=== PATIENT | female | born 1935 | race Caucasian/White ===

== ENCOUNTER 2017-06-04 10:32 | Inpatient (IN) | payer OTHER ==
[~2017-06-04] VITALS: Ht 157.5 cm; Wt 74.4 kg
--- NOTE | 2017-06-04 10:50 | NUR ---
PATIENT ARRIVED TO ER C/O 04/23 ABDOMINAL PAIN. STATING IT STARTED THIS AM AROUND 0300. PATIENT STATES SHE DID HAVE A BOWEL MOVEMENT THIS AM. PATIENT IS A/OX 4. BREATHING EVEN AND UNLABORED ON ROOM AIR. NO SOB. VITALS STABLE. SAFETY AND COMFORT MEASURES IN PLACE. AWAITING MD ORDERS.
[2017-06-04 11:02] LABS: BASOPHILS % (AUTO) 0.3 % (0.0-2.0); EOSINOPHILS % (AUTO) 0.1 % (0.0-6.0); HEMATOCRIT 39 % (33-45); HEMOGLOBIN 13.2 g/dL (11.5-14.8); LYMPHOCYTES # (AUTO) 0.5 /CMM (0.8-4.8); LYMPHOCYTES % (AUTO) 7.4 % (20.0-44.0); MEAN CORPUSCULAR HEMOGLOBIN 30 PG (26.0-33.0); MEAN CORPUSCULAR HGB CONC 34 g/dl (31.0-36.0); MEAN CORPUSCULAR VOLUME 90 fL (82-100); MONOCYTES # (AUTO) 0.3 /CMM (0.1-1.30); MONOCYTES % (AUTO) 3.9 % (2.0-12.0); NEUTROPHILS # (AUTO) 6.5 /CMM (1.8-8.9); NEUTROPHILS % (AUTO) 88.3 % (43.0-81.0); PLATELET COUNT (AUTO) 228 /CMM (150-450); RDW COEFFICIENT OF VARIATION 12.5 (11.5-15.0); RED BLOOD CELL COUNT(AUTO) 4.34 MIL/uL (4.0-5.2); WHITE BLOOD COUNT (AUTO) 7.3 K/uL (4.3-11.0)
[2017-06-04 11:09] LABS: CALCIUM, SERUM 8.8 mg/dL (8.5-10.1); CARBON DIOXIDE 27 mmol/L (21-32); CHLORIDE 103 mmol/L (98-107); CREATININE 0.9 mg/dL (0.6-1.3); GLUCOSE 250 mg/dL (74-106); POTASSIUM 3.9 mmol/L (3.5-5.1); SODIUM SERUM 138 mmol/L (136-145); UREA NITROGEN, BLOOD 14 mg/dL (7-18)
[2017-06-04 11:16] LABS: ALANINE AMINOTRANSFERASE 374 U/L (12-78); ALBUMIN 3.9 g/dL (3.4-5.0); ALKALINE PHOSPHATASE 142 U/L (46-116); ASPARTATE AMINOTRANSFERASE 657 U/L (15-37); BILIRUBIN,DIRECT 1.4 mg/dL (0.0-0.2); BILIRUBIN,TOTAL 2.1 mg/dL (0.2-1.0); TOTAL PROTEIN, SERUM 6.7 g/dL (6.4-8.2)
--- NOTE | 2017-06-04 11:28 | NUR ---
PER DR. VALLE, OKAY TO CANCEL URINALYSIS.
[2017-06-04 12:27] LABS: LIPASE 42281 U/L (73-393)
--- NOTE | 2017-06-04 12:40 | NUR ---
US TECH AT BEDSIDE.
--- NOTE | 2017-06-04 13:50 | NUR ---
MS RN NOTES PATIENT ARRIVED TO UNIT IN WHEELCHAIR. NO S/S OF SOB OR DISTRESS NOTED. VITAL SIGNS STABLE. PATIENT STATES HER PAIN IS BETTER. ORIENTED PATIENT TO THE UNIT AND TO THE ROOM. EXPLAINED CALL LIGHT TO PATIENT. PLACED CALL LIGHT IN REACH. BED IS IN THE LOWEST, LOCKED POSITION. SAFETY MEASURES IMPLEMENTED. FAMILY MEMBER AT BEDSIDE. IV IN LEFT AC IS PATENT AND INTACT. WILL CONTINUE TO MONITOR Addendum: 06/04/17 at 1810 by MARYANA SPEARS RN TIME : 1550 NOT 1350
[2017-06-04] MEDS ORDERED: IV NS 0.9% 500 ML BAG IV ONE (15:00)
--- NOTE | 2017-06-04 15:06 | NUR ---
PATIENT TAKEN TO CT VIA STRETCHER.
--- NOTE | 2017-06-04 15:10 | NUR ---
M/S 312-1
[2017-06-04] MEDS ORDERED: CT SWABBABLE VALVE TRANS SET 1 EA INFUS.SET MC ONE (15:12)
[2017-06-04] MEDS ORDERED: IV NS 0.9% 250 ML IV ONE (15:12)
[2017-06-04] MEDS ORDERED: IOHEXOL-300 100 ML VIAL IV ONE (15:12)
--- NOTE | 2017-06-04 15:17 | NUR ---
REPORT GIVEN TO MARYANA FINNEY FOR MARLYN.
--- NOTE | 2017-06-04 15:40 | NUR ---
PATIENT TRANSPORTED TO [facility] VIA WHEELCHAIR FOR ADMISSION. MARYANA FINNEY TO PROVIDE MARLYN.
[2017-06-04 17:04] VITALS: BP 146/80
[2017-06-04] MEDS ORDERED: MAGN250T PO (17:39)
[2017-06-04] MEDS ORDERED: LEVO50TA8 PO (17:39)
[2017-06-04] MEDS ORDERED: CHOL200026 PO (17:39)
[2017-06-04] MEDS ORDERED: CYAN10009 PO (17:39)
[2017-06-04] MEDS ORDERED: APIX5TAB PO (17:39)
[2017-06-04] MEDS ORDERED: TRAZ-144 PO (17:39)
[2017-06-04] MEDS ORDERED: CRAN400T4 PO (17:39)
[2017-06-04] MEDS ORDERED: ASCO10007 PO (17:39)
[2017-06-04] MEDS ORDERED: ATEN25TA PO (17:39)
[2017-06-04] MEDS ORDERED: PRAV20TA4 PO (17:39)
[2017-06-04] MEDS ORDERED: METF500T7 PO (17:39)
[2017-06-04] MEDS ORDERED: DOCU-170 PO (17:39)
[2017-06-04] MEDS ORDERED: NORT10CA PO (17:39)
[2017-06-04] MEDS ORDERED: BIOT5CAP2 PO (17:39)
[2017-06-04] MEDS ORDERED: ONDANSETRON HCL/PF 4 MG/2 ML VIAL IVP PRN (18:00)
[2017-06-04] MEDS ORDERED: DEXTROSE 50%-WATER 50 ML DISP.SYRIN IV PRN (18:00)
[2017-06-04] MEDS ORDERED: Z GUARD REMEDY 2 OZ OINT TP PRN (18:00)
[2017-06-04] MEDS ORDERED: ACETAMINOPHEN 325 MG TABLET PO PRN (18:00)
[2017-06-04] MEDS ORDERED: INSULIN REGULAR, HUMAN 100 UNIT/ML 3 ML VIAL SQ PRN (18:00)
[2017-06-04] MEDS ORDERED: MORPHINE SULFATE INJ 2 MG/ML DISP.SYRIN IV PRN (18:00)
[2017-06-04] MEDS: NORTRIPTYLINE HCL 10 MG CAPSULE PO SCH (18:25)
[2017-06-04] MEDS: IV NS 0.9% 1,000 ML IV PRN (18:26)
--- NOTE | 2017-06-04 19:25 | NUR ---
MS/RN NOTES RECEIVED PT. LYING IN BED. AWAKE, ALERT AND ORIENTED X4. BREATHING EVEN AND UNLABORED ON ROOM AIR. NO SOB, RESPIRATORY DISTRESS OR COMPLAINTS OF PAIN NOTED AT THIS TIME. PT. WITH LEFT AC PERIPHERAL IV PRESENT, PATENT AND INTACT ADMINISTERING TO PT. NS @ 100 ML/HR. BED IN LOWEST POSITION, CALL LIGHT WITHIN REACH, WILL CONTINUE TO MONITOR.
[2017-06-04] MEDS: ELIQUIS 5 MG PO SCH (19:28)
[2017-06-04 20:20] VITALS: BP 143/82
[2017-06-04] MEDS ORDERED: ZOLPIDEM TARTRATE 5 MG TABLET PO PRN (22:00)
[2017-06-04] MEDS: BLOOD SUGAR DIAGNOSTIC 1 EACH STRIP IN SCH (22:25)
[2017-06-04] MEDS: TRAZODONE 50 MG TABLET PO SCH (22:26)
--- NOTE | 2017-06-05 06:06 | NUR ---
MS/RN NOTES PT. LYING IN BED RESTING. BREATHING EVEN AND UNLABORED ON ROOM AIR. NO SOB, RESPIRATORY DISTRESS OR COMPLAINTS OF PAIN NOTED AT THIS TIME. PT. WITH LEFT AC PERIPHERAL IV PRESENT, PATENT AND INTACT ADMINISTERING TO PT. NS @ 100 ML/HR. ALL PT. NEEDS MET. BED IN LOWEST POSITION, CALL LIGHT WITHIN REACH, WILL ENDORSE TO DAYSHIFT NURSE FOR CONTINUITY OF CARE.
[2017-06-05 06:26] LABS: BASOPHILS % (AUTO) 0.3 % (0.0-2.0); HEMATOCRIT 35 % (33-45); HEMOGLOBIN 11.9 g/dL (11.5-14.8); LYMPHOCYTES # (AUTO) 0.9 /CMM (0.8-4.8); LYMPHOCYTES % (AUTO) 18.4 % (20.0-44.0); MEAN CORPUSCULAR HEMOGLOBIN 31 PG (26.0-33.0); MEAN CORPUSCULAR HGB CONC 34 g/dl (31.0-36.0); MEAN CORPUSCULAR VOLUME 91 fL (82-100); MONOCYTES # (AUTO) 0.4 /CMM (0.1-1.30); MONOCYTES % (AUTO) 8.2 % (2.0-12.0); NEUTROPHILS # (AUTO) 3.4 /CMM (1.8-8.9); NEUTROPHILS % (AUTO) 73.1 % (43.0-81.0); PLATELET COUNT (AUTO) 182 /CMM (150-450); RDW COEFFICIENT OF VARIATION 13.8 (11.5-15.0); RED BLOOD CELL COUNT(AUTO) 3.86 MIL/uL (4.0-5.2); WHITE BLOOD COUNT (AUTO) 4.7 K/uL (4.3-11.0)
[2017-06-05 06:43] LABS: ALANINE AMINOTRANSFERASE 267 U/L (12-78); ALBUMIN 3.2 g/dL (3.4-5.0); ALKALINE PHOSPHATASE 120 U/L (46-116); ASPARTATE AMINOTRANSFERASE 195 U/L (15-37); BILIRUBIN,TOTAL 0.6 mg/dL (0.2-1.0); CARBON DIOXIDE 27 mmol/L (21-32); CHLORIDE 104 mmol/L (98-107); CREATININE 0.7 mg/dL (0.6-1.3); GLUCOSE 107 mg/dL (74-106); MAGNESIUM 1.8 mg/dL (1.8-2.4); PHOSPHORUS 3.8 mg/dL (2.5-4.9); SODIUM SERUM 134 mmol/L (136-145); TOTAL PROTEIN, SERUM 5.7 g/dL (6.4-8.2); UREA NITROGEN, BLOOD 8 mg/dL (7-18)
[2017-06-05 06:46] LABS: CHOLESTEROL 107 mg/dL (<200); HDL CHOLESTEROL 39 mg/dL (40-60); LDL 51 mg/dL (0-99); THYROID STIMULATING HORMONE 1.525 uIU/mL (0.358-3.74); TRIGLYCERIDES 68 mg/dL (30-150)
[2017-06-05] MEDS: BLOOD SUGAR DIAGNOSTIC 1 EACH STRIP IN SCH ×4 (06:51→21:08)
[2017-06-05] MEDS: IV NS 0.9% 1,000 ML IV PRN (06:52)
--- NOTE | 2017-06-05 07:16 | NUR ---
MS/RN OPENING NOTES PT RECEIVED ASLEEP IN BED, EASILY AWAKENS. ALERT AND ORIENTED X4, NO C/O PAIN OR DISCOMFORTS AT THIS TIME. ON ROOM AIR, BREATHING EVEN AND UNLABORED. IV ACCESS ON LEFT AC PATENT AND INTACT WITH IVF OF NS @ 100 ML/HR INFUSING, NO S/S OF INFILTRATION NOTED. BED IN LOWEST POSITION AND LOCKED. CALL LIGHT WITHIN REACH OF PT. WILL MAINTAIN ALL SAFETY MEASURES AND WILL CONTINUE TO MONITOR PT ACCORDINGLY.
[2017-06-05 08:00] VITALS: BP 138/71
[2017-06-05] MEDS: ELIQUIS 5 MG PO SCH ×2 (08:15→17:26)
[2017-06-05] MEDS: PANTOPRAZOLE 40 MG TABLET.DR PO SCH (08:17)
[2017-06-05] MEDS: DOCUSATE SODIUM 100 MG CAPSULE PO SCH (08:17)
[2017-06-05] MEDS: LEVOTHYROXINE SODIUM 50 MCG TABLET PO SCH (08:17)
[2017-06-05] MEDS: ATENOLOL 25 MG TABLET PO SCH ×2 (08:18→17:24)
[2017-06-05] MEDS: ATORVASTATIN 10 MG TABLET PO SCH (08:20)
--- NOTE | 2017-06-05 08:23 | NUR ---
RN NOTES PATIENT C/O MILD HEADACHE, REQUESTED TYLENOL 650MG AND GIVEN. WILL CONTINUE TO MONITOR
[2017-06-05] MEDS: POTASSIUM CHLORIDE 20 MEQ TAB.PRT.SR PO SCH ×3 (11:49→13:41)
[2017-06-05 16:00] VITALS: BP 126/69
[2017-06-05] MEDS: NORTRIPTYLINE HCL 10 MG CAPSULE PO SCH (17:24)
--- NOTE | 2017-06-05 18:17 | NUR ---
RN NOTES PATIENT WITH LOW K LEVEL OF 3.0, MD AWARE AND ORDERED K-DUR 20MEQ TAB X 3DOSES. WILL CONTINUE TO MONITOR
--- NOTE | 2017-06-05 18:57 | NUR ---
MS/RN CLOSING NOTES PATIENT RESTING IN BED. ALERT AND ORIENTED X4, VERBALLY RESPONSIVE. NO SIGNIFICANT CHANGES NOTED THROUGHOUT THE DAY. ON ROOM AIR, BREATHING EVEN AND UNLABORED. IV ACCESS ON RIGHT FA PATENT AND INTACT, SL LOCK ONLY. BED IN LOWEST POSITION AND LOCKED. CALL LIGHT WITHIN REACH OF PT. ALL SAFETY MEASURES MAINTAINED. ALL NEEDS ATTENDED WELL. WILL ENDORSED TO FINISHED GARMENT INSPECTOR FOR MARLYN. .
--- NOTE | 2017-06-05 19:30 | NUR ---
RN NOTES RECEIVED PATIENT IN BED AWAKE, AO X 3, ABLE TO MAKE NEEDS KNOWN. NO ACUTE DISTRESS NOTED. DENIES ANY PAIN AT THIS TIME. NO SYMPTOMS OF HYPER/HYPOGLYCEMIA. IV SITE PATENT, INTACT; FLUSHED. ON LOW BED WITH BILATERAL UPPER SIDE RAILS UP. CALL LIGHT WITHIN EASY REACH. WILL CONTINUE TO MONITOR.
[2017-06-05 20:00] VITALS: BP 129/75
[2017-06-05 20:09] VITALS: BP 129/75
[2017-06-05] MEDS: TRAZODONE 50 MG TABLET PO SCH (22:55)
--- NOTE | 2017-06-06 06:19 | NUR ---
RN NOTES PATIENT ASLEEP, AROUSES EASILY, RESPIRATIONS EVEN. NO SIGNS OF PAIN NOTED AT THIS TIME. DUE MEDS GIVEN WITH NO ASE NOTED. NEEDS ATTENDED. SAFETY PRECAUTIONS AND COMFORT MEASURES IN PLACE. WILL GIVE REPORT TO DAY SHIFT FOR CONTINUITY OF CARE.
[2017-06-06] MEDS: BLOOD SUGAR DIAGNOSTIC 1 EACH STRIP IN SCH ×2 (06:32→11:38)
[2017-06-06 06:44] LABS: BASOPHILS % (AUTO) 0.9 % (0.0-2.0); EOSINOPHILS % (AUTO) 0.5 % (0.0-6.0); HEMATOCRIT 34 % (33-45); HEMOGLOBIN 11.8 g/dL (11.5-14.8); LYMPHOCYTES % (AUTO) 23.5 % (20.0-44.0); MEAN CORPUSCULAR HEMOGLOBIN 31 PG (26.0-33.0); MEAN CORPUSCULAR HGB CONC 35 g/dl (31.0-36.0); MEAN CORPUSCULAR VOLUME 90 fL (82-100); MONOCYTES # (AUTO) 0.4 /CMM (0.1-1.30); MONOCYTES % (AUTO) 9.4 % (2.0-12.0); NEUTROPHILS # (AUTO) 2.7 /CMM (1.8-8.9); NEUTROPHILS % (AUTO) 65.7 % (43.0-81.0); PLATELET COUNT (AUTO) 174 /CMM (150-450); RDW COEFFICIENT OF VARIATION 13.5 (11.5-15.0); RED BLOOD CELL COUNT(AUTO) 3.78 MIL/uL (4.0-5.2); WHITE BLOOD COUNT (AUTO) 4.1 K/uL (4.3-11.0)
[2017-06-06 07:13] LABS: ALANINE AMINOTRANSFERASE 168 U/L (12-78); ALBUMIN 3.1 g/dL (3.4-5.0); ALKALINE PHOSPHATASE 101 U/L (46-116); ASPARTATE AMINOTRANSFERASE 67 U/L (15-37); BILIRUBIN,TOTAL 0.6 mg/dL (0.2-1.0); CALCIUM, SERUM 8.1 mg/dL (8.5-10.1); CARBON DIOXIDE 28 mmol/L (21-32); CHLORIDE 108 mmol/L (98-107); CREATININE 0.9 mg/dL (0.6-1.3); GLUCOSE 130 mg/dL (74-106); LIPASE 499 U/L (73-393); MAGNESIUM 1.9 mg/dL (1.8-2.4); PHOSPHORUS 3.4 mg/dL (2.5-4.9); SODIUM SERUM 142 mmol/L (136-145); TOTAL PROTEIN, SERUM 5.8 g/dL (6.4-8.2); UREA NITROGEN, BLOOD 10 mg/dL (7-18)
--- NOTE | 2017-06-06 07:23 | NUR ---
MS/RN OPENING NOTES RECEIVED PATIENT IN BED AWAKE AND IN NO ACUTE SIGNS OF DISTRESS. ALERT AND ORIENTED X4, NO C/O PAIN OR DISCOMFORTS AT THIS TIME. ON ROOM AIR, BREATHING EVEN AND UNLABORED. IV ACCESS ON RIGHT FA #18 PATENT AND INTACT. BED IN LOWEST POSITION AND LOCKED. CALL LIGHT WITHIN REACH OF PT. WILL MAINTAIN ALL SAFETY MEASURES AND WILL CONTINUE TO MONITOR PT ACCORDINGLY.
[2017-06-06 08:00] VITALS: BP 132/69
[2017-06-06] MEDS: LEVOTHYROXINE SODIUM 50 MCG TABLET PO SCH (08:21)
[2017-06-06] MEDS: DOCUSATE SODIUM 100 MG CAPSULE PO SCH (08:21)
[2017-06-06] MEDS: ATORVASTATIN 10 MG TABLET PO SCH (08:21)
[2017-06-06] MEDS: PANTOPRAZOLE 40 MG TABLET.DR PO SCH (08:21)
[2017-06-06 08:22] VITALS: BP 132/69
[2017-06-06] MEDS: ATENOLOL 25 MG TABLET PO SCH (08:22)
[2017-06-06] MEDS: ELIQUIS 5 MG PO SCH (08:25)
--- NOTE | 2017-06-06 11:38 | NUR ---
RN NOTES PATIENT WITH BLOOD SUGAR OF 141MG/DL BUT REFUSED INSULIN COVERAGE. WILL CONTINUE TO MONITOR.
[2017-06-06] MEDS ORDERED: PANT40TA4 PO (12:47)
--- NOTE | 2017-06-06 13:27 | NUR ---
RN DISCHARGED NOTES PATIENT DISCHARGED HOME IN STABLE CONDITION. LEFT UNIT AMBULATORY AT ACCOMPANIED BY NIECE AT 1320H. ALERT AND ORIENTED X4, NO C/O PAIN OR DISCOMFORTS DURING DISCHARGE. NO SOB NOTED. V/S CHECKED AND RECORDED. SKIN IS INTACT. NO IMMUNIZATION GIVEN, VERBALIZED THAT SHE GETS PNA AND FLU VACCINES EVERY YEAR. BELONGINGS CHECKED, COUNTED AND SIGNED FORM. HEALTH TEACHINGS GIVEN AND VERBALIZED UNDERSTANDING. MD AND CHARGE NURSE AWARE OF DISCHARGE.
== END 2017-06-06 13:25 | disposition home or self-care (01) | DRG 439 ==
LOC: ER 10:44 → MED 15:58
PROVIDERS: ADMIT Nurse Practitioner Acute Care; ATTEND Nurse Practitioner Acute Care
DX: K85.90 Acute pancreatitis without necrosis or infection, unspecified (principal); D68.59 Other primary thrombophilia; K29.80 Duodenitis without bleeding; K58.9 Irritable bowel syndrome, unspecified; E03.9 Hypothyroidism, unspecified; E11.9 Type 2 diabetes mellitus without complications; E66.9 Obesity, unspecified; E78.5 Hyperlipidemia, unspecified; G50.0 Trigeminal neuralgia; I10 Essential (primary) hypertension; I48.0 Paroxysmal atrial fibrillation; K21.9 Gastro-esophageal reflux disease without esophagitis; Z90.49 Acquired absence of other specified parts of digestive tract; Z90.710 Acquired absence of both cervix and uterus; E80.6 Other disorders of bilirubin metabolism; R74.0 Nonspecific elevation of levels of transaminase and lactic acid dehydrogenase [LDH]; Z68.30 Body mass index [BMI] 30.0-30.9, adult
CPT/HCPCS: 36415; 76705-TC; 80048-TC; 80053-TC; 80061-TC; 80076-TC; 82962-TC; 83690-TC; 83735-TC; 84100-TC; 84443-TC; 85025-TC; 86301; 87081-TC; A4606; A6402; J1815; J7030; J7040; J7050; Q9967; Z7610

== ENCOUNTER 2017-12-16 18:35 | Inpatient (IN) | payer OTHER ==
[~2017-12-16] VITALS: Ht 165.1 cm; Wt 80.3 kg
[~2017-12-16 18:35] MED LIST: APIX5TAB PO; ASCO10007 PO; ATEN25TA PO; BIOT5CAP2 PO; CHOL200026 PO; CRAN400T4 PO; CYAN10009 PO; DOCU100C36 PO; LEVO50TA8 PO; MAGN250T2 PO; METF500T7 PO; NORT10CA PO; PANT40TA4 PO; PRAV20TA4 PO; TRAZ-144 PO
--- NOTE | 2017-12-16 18:35 | NUR ---
PT RECEIVED FROM HOME BB SELF C/O "ABDOMINAL PAIN 08/23 X1 DAY NONRADIATING". NO SOB NOTED AT THIS TIME. VSS NAD WILL CONTINUE TO MONITOR FOR ANY CHANGES DURING THE SHIFT
--- NOTE | 2017-12-16 19:20 | NUR ---
BLOOD SENT TO LAB WITH SAP DIRECTOR
[2017-12-16] MEDS ORDERED: HYDROMORPHONE INJ 0.5 MG/0.5 ML SYRINGE ONE (19:35)
[2017-12-16] MEDS ORDERED: ONDANSETRON HCL/PF 4 MG/2 ML VIAL ONE (19:35)
--- NOTE | 2017-12-16 19:44 | NUR ---
CARDIOVASCULAR LAB DIRECTOR AT BEDSIDE
[2017-12-16 19:49] LABS: CALCIUM, SERUM 10.5 mg/dL (8.5-10.1); CARBON DIOXIDE 27 mmol/L (21-32); CHLORIDE 100 mmol/L (98-107); GLUCOSE 184 mg/dL (74-106); POTASSIUM 3.9 mmol/L (3.5-5.1); SODIUM SERUM 139 mmol/L (136-145); UREA NITROGEN, BLOOD 19 mg/dL (7-18)
[2017-12-16 19:54] LABS: ALANINE AMINOTRANSFERASE 73 U/L (12-78); ALBUMIN 4.2 g/dL (3.4-5.0); ALKALINE PHOSPHATASE 106 U/L (46-116); ASPARTATE AMINOTRANSFERASE 28 U/L (15-37); BILIRUBIN,DIRECT 0.1 mg/dL (0.0-0.2); BILIRUBIN,TOTAL 0.6 mg/dL (0.2-1.0); LIPASE 227 U/L (73-393); TOTAL PROTEIN, SERUM 7.9 g/dL (6.4-8.2)
[2017-12-16 19:59] LABS: INR 1.02 (0.85-1.15)
[2017-12-16] MEDS ORDERED: IV NS 0.9% 1,000 ML BAG IV ONE (20:00)
[2017-12-16] MEDS ORDERED: HYDROMORPHONE 1 MG/1 ML DISP.SYRIN IV ONE (20:00)
[2017-12-16] MEDS ORDERED: HYDROMORPHONE INJ 2 MG/ML DISP.SYRIN IV ONE (20:00)
[2017-12-16] MEDS ORDERED: ONDANSETRON HCL/PF 4 MG/2 ML VIAL IVP ONE (20:00)
--- NOTE | 2017-12-16 20:14 | NUR ---
CALLED NURSING SUP. FOR MS BED
--- NOTE | 2017-12-16 20:39 | NUR ---
ER MD MELENDEZ STATED THAT WE DO NOT NEED IN/OUT CATH FOR URINE. PT UNABLE TO GET UP AND URINE BYSELF
[2017-12-16 20:41] LABS: BASOPHILS % (AUTO) 0.2 % (0.0-2.0); HEMATOCRIT 42 % (33-45); HEMOGLOBIN 14.6 g/dL (11.5-14.8); LYMPHOCYTES # (AUTO) 1.3 /CMM (0.8-4.8); LYMPHOCYTES % (AUTO) 13.8 % (20.0-44.0); MEAN CORPUSCULAR HEMOGLOBIN 31 PG (26.0-33.0); MEAN CORPUSCULAR HGB CONC 34 g/dl (31.0-36.0); MEAN CORPUSCULAR VOLUME 89 fL (82-100); MONOCYTES # (AUTO) 0.5 /CMM (0.1-1.30); MONOCYTES % (AUTO) 5.4 % (2.0-12.0); NEUTROPHILS # (AUTO) 7.3 /CMM (1.8-8.9); NEUTROPHILS % (AUTO) 80.6 % (43.0-81.0); PLATELET COUNT (AUTO) 226 /CMM (150-450); RDW COEFFICIENT OF VARIATION 12.5 (11.5-15.0); RED BLOOD CELL COUNT(AUTO) 4.74 MIL/uL (4.0-5.2); WHITE BLOOD COUNT (AUTO) 9.1 K/uL (4.3-11.0)
--- NOTE | 2017-12-16 21:22 | NUR ---
PT STATED "I FEEL SO MUCH BETTER AFTER THAT PAIN MEDICATION. WORLD OF A DIFFERENCE. HOPEFULLY I CAN GO HOME". VISUALLY PATIENT IS NAD VSS
--- NOTE | 2017-12-16 21:28 | NUR ---
DIRECTOR [facility] AT BEDSIDE TO TAKE PT TO CT SCAN
--- NOTE | 2017-12-16 21:40 | NUR ---
PT BACK FROM CT SCAN
--- NOTE | 2017-12-16 22:35 | NUR ---
CALLED , ROOFER SURGEON, TRANSFERRED CALL TO
--- NOTE | 2017-12-16 22:38 | NUR ---
[facility] PAGED, DR. LO GOOD HUMOR VENDOR
--- NOTE | 2017-12-16 22:42 | NUR ---
MS 324-2
--- NOTE | 2017-12-16 22:49 | NUR ---
REPORT GIVEN TO DONALD
[2017-12-16 22:51] LABS: APPEARANCE,URINE CLOUDY (CLEAR); BILIRUBIN,URINE NEGATIVE (NEGATIVE); BLOOD, URINE TRACE-INTA Ery/uL (NEGATIVE); COLOR,URINE YELLOW (YELLOW); KETONES,URINE 2+ (NEGATIVE); LEUKOCYTE ESTERASE ,URINE NEGATIVE (NEGATIVE); NITRITE, URINE NEGATIVE (NEGATIVE); PROTEIN,URINE NEGATIVE (NEGATIVE); UGLUCOSE NEGATIVE (NEGATIVE); UROBILINOGEN,URINE 0.2 EU/dL (0.2)
--- NOTE | 2017-12-16 22:53 | NUR ---
MD GUTIERREZ AT BEDSIDE FOR EVAL
--- NOTE | 2017-12-16 23:00 | NUR ---
ADMIT MD HAS LEFT ROOM. PT TO BE BROUGHT UP NOW
[2017-12-16 23:05] VITALS: BP 159/84
--- NOTE | 2017-12-16 23:05 | NUR ---
MS RN ADMITTING NOTES: ADMITTED AN 82 YO FEMALE PATIENT WHO WAS BROUGHT TO ER BY NEIGHBOR DUE TO SEVERE, STABBING, NON RADIATING EPIGASTRIC PAIN. PATIENT WAS BROUGHT TO MS FLOOR VIA WC. PATIENT AOX4, ON ROOM AIR, BREATHING EVEN AND UNLABORED. APPEARS CALM AND IN NO DISTRESS AT THIS TIME, STATES THAT ABDL PAIN IS NOT AT 2/10, INTERMITTENT FREQ. DENIES NAUSEA OR VOMITING. ALSO DENIES DIARRHEA, LAST BM WAS AT HOME THIS AM, PER PATIENT, IT WAS SOFT TO FORMED. PIV OVER RAC G 18 INTACT AND PATENT TO FLUSH. ADMITTING CARE DONE. PROVIDED FOR COMFORT AND SAFETY. BED IN LOWEST AND LOCKED POSITION, SIDERAILS UP X 2. WILL CONT TO MONITOR.
[2017-12-16 23:18] LABS: BACTERIA,URINE 2+ /HPF (None Seen); SQUAMOUS EPITHELIAL CELL,UR Few /HPF (None Seen); URINE AMORPHOUS URATE Many /HPF (None Seen)
[2017-12-16] MEDS ORDERED: ZOLPIDEM TARTRATE 5 MG TABLET PO PRN (23:30)
[2017-12-16] MEDS ORDERED: MAGNESIUM HYDROXIDE 30 ML UDC PO PRN (23:30)
[2017-12-16] MEDS ORDERED: MORPHINE SULFATE INJ 2 MG/ML DISP.SYRIN IV PRN (23:30)
[2017-12-16] MEDS ORDERED: Z GUARD REMEDY 2 OZ OINT TP PRN (23:30)
[2017-12-16] MEDS ORDERED: ACETAMINOPHEN 325 MG TABLET PO PRN (23:30)
[2017-12-16] MEDS ORDERED: ONDANSETRON HCL/PF 4 MG/2 ML VIAL IVP PRN (23:30)
--- NOTE | 2017-12-17 00:20 | NUR ---
RN NOTES: ATTEMPTED TO INSERT NGT X2, FIRST WITH FR 14 AND THEN WITH FR 16 SEFERINO HARDEN, HOWEVER, NGT UNABLE TO MOVE PAST TO NASAL PASSAGE. PATIENT REFUSING TO HAVE NGT INSERTED FOR NOW. WILL ATTEMPT LATER. MAINTAINED HOB ELEVATED.
--- NOTE | 2017-12-17 01:10 | NUR ---
RN NOTES: NGT INSERTED BY CHARGE NURSE REG LESLIE. FR 16. INSERTED AT LEFT NARES. POSITIVE PLACEMENT UPON INTRODUCTION OF AIR INTO NGT.
--- NOTE | 2017-12-17 01:19 | NUR ---
RN NOTES: CXR AT BEDSIDE FOR VERIFICATION OF NGT PLACEMENT.
--- NOTE | 2017-12-17 03:19 | NUR ---
RN NOTES: PATIENT COMPLAINED OF NAUSEA, AND SAID SHE HAS VOMITED A LITTLE USING HER KLEENEX, BUT UNABLE TO SEE PATIENT DISPOSED OF IT. ZOFRAN 4 MG IV PRN GIVEN. MAINTAINED HOB ELEVATED. NGT ATTACHED TO LOW INTERMITTENT SUCTION, DRAINING GREENISH FLUID. WILL CONT TO MONITOR.
[2017-12-17] MEDS: IV D5/0.45 NACL 1,000 ML IV PRN ×2 (04:41→16:14)
--- NOTE | 2017-12-17 06:59 | NUR ---
MS RN CLOSING NOTES: PATIENT IN BED, AOX4, ON ROOM AIR, BREATHING EVEN AND UNLABORED. APPEARS CALM BUT STILL COMPLAINING OF EPIGASTRIC PAIN, NOW AT 4/10. NGT FR 16 INSERTED AT LEFT NARES, ATTACHED TO LOW INTERMITTENT SUCTION, DRAINING GREENISH FLUID, DRAINED 700 FROM BOTTLE. HOB MAINTAINED ELEVATED. ON NPO. PIV OVER RAC G 18 INTACT AND INFUSING WELL WITH D5 1/2 NS RUNNING AT 75 ML/HR. DUE MEDS GIVEN, PROVIDED FOR COMFORT AND SAFETY. BED IN LOWEST AND LOCKED POSITION, SIDERAILS UP X 3, CALL LIGHT WITHIN REACH. WILL ENDORSE TO AM RN FOR MARLYN.
--- NOTE | 2017-12-17 07:15 | NUR ---
RN NOTES PT IS SITTING UP IN BED, RESTING. PT ON RA, RESPIRATIONS ARE EVEN AND UNLABORED. IV ON RAC INTACT AND RUNNING D51/2 NS @ 75ML/HR. NG TUBE IS IN PLACE CONNECTED TO LOW INTERMITTENT SUCTION. SAFETY MEASURES ARE IN PLACE, CALL LIGHT IS IN REACH. WILL CONTINUE TO MONITOR.
[2017-12-17 07:40] LABS: BASOPHILS % (AUTO) 0.2 % (0.0-2.0); HEMATOCRIT 41 % (33-45); HEMOGLOBIN 14.1 g/dL (11.5-14.8); LYMPHOCYTES # (AUTO) 0.8 /CMM (0.8-4.8); LYMPHOCYTES % (AUTO) 9.8 % (20.0-44.0); MEAN CORPUSCULAR HEMOGLOBIN 31 PG (26.0-33.0); MEAN CORPUSCULAR HGB CONC 35 g/dl (31.0-36.0); MEAN CORPUSCULAR VOLUME 90 fL (82-100); MONOCYTES # (AUTO) 0.4 /CMM (0.1-1.30); MONOCYTES % (AUTO) 4.7 % (2.0-12.0); NEUTROPHILS # (AUTO) 7.4 /CMM (1.8-8.9); NEUTROPHILS % (AUTO) 85.3 % (43.0-81.0); PLATELET COUNT (AUTO) 262 /CMM (150-450); RDW COEFFICIENT OF VARIATION 12.9 (11.5-15.0); RED BLOOD CELL COUNT(AUTO) 4.56 MIL/uL (4.0-5.2); WHITE BLOOD COUNT (AUTO) 8.6 K/uL (4.3-11.0)
[2017-12-17 08:00] VITALS: BP 136/77
[2017-12-17 08:25] LABS: CHOLESTEROL 152 mg/dL (<200); HDL CHOLESTEROL 56 mg/dL (40-60); LDL 88 mg/dL (0-99); TRIGLYCERIDES 77 mg/dL (30-150)
[2017-12-17 08:27] LABS: ALANINE AMINOTRANSFERASE 64 U/L (12-78); ALBUMIN 3.8 g/dL (3.4-5.0); ALKALINE PHOSPHATASE 92 U/L (46-116); ASPARTATE AMINOTRANSFERASE 23 U/L (15-37); BILIRUBIN,TOTAL 0.6 mg/dL (0.2-1.0); CALCIUM, SERUM 8.9 mg/dL (8.5-10.1); CARBON DIOXIDE 28 mmol/L (21-32); CHLORIDE 102 mmol/L (98-107); GLUCOSE 187 mg/dL (74-106); MAGNESIUM 1.9 mg/dL (1.8-2.4); PHOSPHORUS 3.6 mg/dL (2.5-4.9); POTASSIUM 3.5 mmol/L (3.5-5.1); SODIUM SERUM 141 mmol/L (136-145); TOTAL PROTEIN, SERUM 7.2 g/dL (6.4-8.2); UREA NITROGEN, BLOOD 13 mg/dL (7-18)
[2017-12-17] MEDS: ATENOLOL 25 MG TABLET PO SCH ×2 (08:36→16:14)
[2017-12-17] MEDS ORDERED: APIXABAN 5 MG TABLET PO SCH ×2 (09:00)
[2017-12-17] MEDS ORDERED: DIATR MEGLU/DIATRIZOATE SODIUM 120 ML BOTTLE (GASTROGRAPHIN) ONE (11:44)
[2017-12-17 16:00] VITALS: BP 144/75
--- NOTE | 2017-12-17 17:30 | NUR ---
RN NOTES MD AWARE OF NEGATIVE BOWEL X-RAY. MD STATED WE COULD REMOVE NG TUBE AND ADVANCE DIET TOLERATED.
[2017-12-17] MEDS ORDERED: NORTRIPTYLINE HCL 10 MG CAPSULE PO SCH (18:00)
--- NOTE | 2017-12-17 18:33 | NUR ---
RN NOTES PT IS SITING UP IN BED, RESTING COMFORTABLY. PT ON RA, RESPIRATIONS ARE EVEN AND UNLABORED. IV ON RAC INTACT AND RUNNING D51/2 NS @ 75ML/HR. ALL MEDS WERE GIVEN ORDERED AND PT NEEDS MET. PT ABLE TO TOLERATE CLEAR LIQUID DIET, WILL CONTINUE TO ADVANCE TOLERATED. SAFETY MEASURES ARE IN PLACE, CALL LIGHT IS IN REACH. WILL ENDORSE TO MANAGER MARKET RESEARCH RN FOR CONTINUITY OF CARE.
--- NOTE | 2017-12-17 19:30 | NUR ---
RN OPENING NOTES PT IS IN BED, ALERT AND ORIENTED X4. VS STABLE. NO C/O PAIN OR DISCOMFORT AT THIS TIME. NO SOB NOTED. RESPIRATIONS EVEN AND UNLABORED. IV ACCESS ON RAC PATENT AND INTACT, INFUSING D51/2 NS @ 75ML/HR. PATIENT IS ON CLEAR LIQUID DIET. BED IN LOW AND LOCKED POSITION, SIDE RAILS X2. CALL LIGHT WITHIN EASY REACH. WILL CONTINUE TO MONITOR AND ASSESS DURING THE SHIFT.
[2017-12-17 20:00] VITALS: BP 133/78
--- NOTE | 2017-12-18 06:47 | NUR ---
RN CLOSING NOTES PT IS SLEEPING IN BED, EASY TO AROUSE, ALERT AND ORIENTED X4. VS STABLE. NO PAIN OR DISCOMFORT NOTED AT THIS TIME. NO SOB NOTED. RESPIRATIONS EVEN AND UNLABORED. IV ACCESS ON RAC PATENT AND INTACT, INFUSING D51/2 NS @ 75ML/HR, NO REDNESS OR INFILTRATION NOTED. PATIENT IS ON CLEAR LIQUID DIET. ALL NEEDS ARE MET AND MEDICATIONS GIVEN PER MD ORDER. BED IN LOW AND LOCKED POSITION, SIDE RAILS X2. CALL LIGHT WITHIN EASY REACH. WILL ENDORSE TO RN DAY SHIFT FOR MARLYN.
--- NOTE | 2017-12-18 07:20 | NUR ---
RN NOTES PT IS LAYING DOWN, SLEEPING COMFORTABLY. PT ON RA, RESPIRATIONS ARE EVEN AND UNLABORED. IV ON RAC INTACT AND SL PER PTS REQUEST WHILE SLEEPING. SAFETY MEASURES ARE IN PLACE, CALL LIGHT IS IN REACH. WILL CONTINUE TO MONITOR.
[2017-12-18 07:22] LABS: BASOPHILS % (AUTO) 0.4 % (0.0-2.0); EOSINOPHILS % (AUTO) 0.2 % (0.0-6.0); HEMATOCRIT 37 % (33-45); HEMOGLOBIN 12.6 g/dL (11.5-14.8); LYMPHOCYTES # (AUTO) 1.5 /CMM (0.8-4.8); LYMPHOCYTES % (AUTO) 29.6 % (20.0-44.0); MEAN CORPUSCULAR HEMOGLOBIN 31 PG (26.0-33.0); MEAN CORPUSCULAR HGB CONC 34 g/dl (31.0-36.0); MEAN CORPUSCULAR VOLUME 90 fL (82-100); MONOCYTES # (AUTO) 0.4 /CMM (0.1-1.30); MONOCYTES % (AUTO) 8.6 % (2.0-12.0); NEUTROPHILS # (AUTO) 3.1 /CMM (1.8-8.9); NEUTROPHILS % (AUTO) 61.2 % (43.0-81.0); PLATELET COUNT (AUTO) 205 /CMM (150-450); RDW COEFFICIENT OF VARIATION 13.4 (11.5-15.0); RED BLOOD CELL COUNT(AUTO) 4.05 MIL/uL (4.0-5.2); WHITE BLOOD COUNT (AUTO) 5.1 K/uL (4.3-11.0)
[2017-12-18 07:41] LABS: CALCIUM, SERUM 8.3 mg/dL (8.5-10.1); CARBON DIOXIDE 30 mmol/L (21-32); CHLORIDE 106 mmol/L (98-107); CREATININE 0.7 mg/dL (0.6-1.3); GLUCOSE 117 mg/dL (74-106); PHOSPHORUS 2.9 mg/dL (2.5-4.9); POTASSIUM 3.8 mmol/L (3.5-5.1); SODIUM SERUM 143 mmol/L (136-145); UREA NITROGEN, BLOOD 11 mg/dL (7-18)
[2017-12-18 08:00] VITALS: BP 116/63
[2017-12-18] MEDS: ATENOLOL 25 MG TABLET PO SCH (09:06)
--- NOTE | 2017-12-18 12:40 | NUR ---
RN NOTES PT WAS DISCHARGED HOME IN STABLE CONDITION, ACCOMPANIED BY HER FAMILY. IV AND ID BAND WERE REMOVED. DISCHARGE PAPERS WERE SIGNED AND BELONGINGS/ MEDICATIONS WERE RETURNED TO PT. SKIN ASSESSMENT PICTURES WERE TAKEN. NEW PRESCRIPTION WAS GIVEN TO PT AND WAS EXPLAINED TO PICK IT UP AT PREFERRED PHARMACY. PT WAS ALSO TOLD TO FOLLOW UP WITH PRIMARY CARE PHYSICIAN WITHIN 1-2 WEEKS OF DISCHARGE. PT VERBALIZED UNDERSTANDING AND WILL MAKE HER OWN APPOINTMENT.
[2017-12-18] MEDS ORDERED: SENN-18 PO (12:41)
[2017-12-18 12:50] VITALS: BP 117/82
== END 2017-12-18 13:00 | disposition home or self-care (01) | DRG 389 ==
LOC: ER 18:37 → MED 12-17 00:06
PROVIDERS: ADMIT Internal Medicine; ATTEND Internal Medicine
DX: K56.609 Unspecified intestinal obstruction, unspecified as to partial versus complete obstruction (principal); D68.59 Other primary thrombophilia; I48.91 Unspecified atrial fibrillation; E11.9 Type 2 diabetes mellitus without complications; I10 Essential (primary) hypertension; E78.5 Hyperlipidemia, unspecified; Z90.710 Acquired absence of both cervix and uterus; Z85.820 Personal history of malignant melanoma of skin; Z90.49 Acquired absence of other specified parts of digestive tract; Z79.01 Long term (current) use of anticoagulants; K21.9 Gastro-esophageal reflux disease without esophagitis; K58.9 Irritable bowel syndrome, unspecified; K59.09 Other constipation; E83.52 Hypercalcemia; E03.9 Hypothyroidism, unspecified; D35.02 Benign neoplasm of left adrenal gland; K57.50 Diverticulosis of both small and large intestine without perforation or abscess without bleeding; N20.0 Calculus of kidney; I70.0 Atherosclerosis of aorta; Z79.84 Long term (current) use of oral hypoglycemic drugs; Z79.899 Other long term (current) drug therapy
CPT/HCPCS: 36415; 71045-TC; 74250-TC; 80048-TC; 80053-TC; 80061-TC; 80076-TC; 81000-TC; 83690-TC; 83735-TC; 84100-TC; 85025-TC; 85730-TC; 87081-TC; 87086-TC; 93307-TC; A4606; J2270; J2405; J3490; Q9963; Z7610

== ENCOUNTER → 2024-06-07 | Emergency (ER) | payer OTHER ==
[~2024-06-07] VITALS: Ht 165.1 cm; Wt 72.6 kg
[~2024-06-07] MED LIST changes: +ASCO100058 PO; -ASCO10007 PO; +CYAN-51 PO; -CYAN10009 PO; +METF-881 PO; -METF500T7 PO; +ONDA4TAB11 PO; +ONDANSETRON HCL/PF 4 MG/2 ML VIAL ONE; -PANT40TA4 PO; +PANT40TA49 PO; +SENN-18 PO; -TRAZ-144 PO; +TRAZ-182 PO
[2024-06-07 18:19] LABS: BASOPHILS % (AUTO) 0.3 % (0.0-2.0); HEMATOCRIT 54 % (33-45); HEMOGLOBIN 17.4 g/dL (11.5-14.8); LYMPHOCYTES # (AUTO) 0.7 K/uL (0.8-4.8); LYMPHOCYTES % (AUTO) 8.3 % (20.0-44.0); MEAN CORPUSCULAR HEMOGLOBIN 27 PG (26.0-33.0); MEAN CORPUSCULAR HGB CONC 32 g/dl (31.0-36.0); MEAN CORPUSCULAR VOLUME 83 fL (82-100); MONOCYTES # (AUTO) 0.4 K/uL (0.1-1.30); MONOCYTES % (AUTO) 4.4 % (2.0-12.0); NEUTROPHILS # (AUTO) 7.2 K/uL (1.8-8.9); PLATELET COUNT (AUTO) 356 K/uL (150-450); RED BLOOD CELL COUNT(AUTO) 6.52 MIL/uL (4.0-5.2); RED CELL DISTRIBUTION WIDTH 17.9 % (11.5-15.0); WHITE BLOOD COUNT (AUTO) 8.2 K/uL (4.3-11.0)
[2024-06-07] MEDS: IV NS 0.9% 1,000 ML BAG IV ONE (18:23)
[2024-06-07 18:31] LABS: ALANINE AMINOTRANSFERASE 19 U/L (12-78); ALBUMIN 3.4 g/dL (3.4-5.0); ALKALINE PHOSPHATASE 64 U/L (46-116); ASPARTATE AMINOTRANSFERASE 17 U/L (15-37); BILIRUBIN,DIRECT 0.2 mg/dL (0.0-0.2); BILIRUBIN,TOTAL 0.9 mg/dL (0.2-1.0); CALCIUM, SERUM 8.9 mg/dL (8.5-10.1); CARBON DIOXIDE 24 mmol/L (21-32); CHLORIDE 103 mmol/L (98-107); CREATININE 1.1 mg/dL (0.6-1.3); GLUCOSE 122 mg/dL (74-106); LIPASE 29 U/L (16-77); POTASSIUM 3.7 mmol/L (3.5-5.1); SODIUM SERUM 135 mmol/L (136-145); TOTAL PROTEIN, SERUM 6.5 g/dL (6.4-8.2); UREA NITROGEN, BLOOD 10 mg/dL (7-18)
[2024-06-07] MEDS: ONDANSETRON HCL/PF 4 MG/2 ML VIAL IVP ONE (18:35)
[2024-06-07 19:17] VITALS: BP 120/60; TEMP 98.1; O2SAT 95
== END | disposition home or self-care (01) ==
LOC: ER 17:40
DX: K59.00 Constipation, unspecified (principal); R10.31 Right lower quadrant pain; R10.11 Right upper quadrant pain; R11.0 Nausea; I10 Essential (primary) hypertension; I48.91 Unspecified atrial fibrillation; E11.9 Type 2 diabetes mellitus without complications; Z85.820 Personal history of malignant melanoma of skin; Z87.19 Personal history of other diseases of the digestive system; Z86.59 Personal history of other mental and behavioral disorders
CPT/HCPCS: 99285; 74176; 96374; 96361; 85025; 80048; 83690; 80076; 36415; J2405; J7030